=== PATIENT | female | born 1985 | race African-American/Black ===

== ENCOUNTER → 2016-04-23 | Day surgery (SDC) | payer MEDICAID ==
[2016-02-04 09:54] VITALS: BMI 28.8
[~2016-04-23] MED LIST: CEFAZOLIN 1 GM VIAL ONE
[2016-04-23 11:22] VITALS: BP 242/139; PULSE 101
--- NOTE | 2016-04-23 11:32 | PCM.SURGRO ---
Patient presented to same day surgery department with blood pressure of 242/139 and asymptomatic. The patient reports that she has not taken her antihypertensive medications for three to four days. We will cancel surgery, have the patient follow up with her primary care provider and reschedule surgery when blood pressure is well controlled. I have discussed the clinical scenario with Dr. Vicente, anesthesiologist and with the patient. All questions were answered.
== END ==
LOC: SDC 10:56
PROVIDERS: ATTEND Surgery
DX: K40.20 Bilateral inguinal hernia, without obstruction or gangrene, not specified as recurrent (principal); I10 Essential (primary) hypertension; Z53.09 Procedure and treatment not carried out because of other contraindication
CPT/HCPCS: 81025; J0690

== ENCOUNTER → 2016-05-14 | Day surgery (SDC) | payer MEDICAID ==
[2016-02-04 09:54] VITALS: BMI 28.8
[~2016-05-14] MED LIST changes: +BUPIVACAINE 0.25% 30 ML VIAL ONE; +DEXAMETHASONE 4 MG/ML VIAL IV ONE; +FENTANYL 100 MCG/2 ML VIAL IV ONE; +FENTANYL 100 MCG/2 ML VIAL IV PRN; +FENTANYL 100 MCG/2 ML VIAL ONE; +HYDROmorphone 1 MG INJECTION IV PRN; +HYDROmorphone 2 MG/ML VIAL IM ONE; +KETOROLAC TROMETH 30 MG/ML VIAL IM ONE; +LABETALOL 20 MG/4 ML SYRINGE IV PRN; +LIDOCAINE 1% 2 ML (METHYLPARABEN FREE) ONE; +LIDOCAINE 4% 5 ML AMPULE NEB ONE; +MEPERIDINE 25 MG/ML TUBEX IV PRN; +MIDAZOLAM 2 MG/2 ML VIAL IV ONE; +ONDANSETRON HCL 4 MG ODT TAB PO PRN; +ONDANSETRON HCL 4 MG/2 ML VIAL IV ONE; +ONDANSETRON HCL 4 MG/2 ML VIAL IV PRN; +OXYCODONE HCL 5 MG TABLET ONE; +PROMETHAZINE 25 MG/ML VIAL IV PRN; +PROPOFOL 200 MG/20 ML VIAL IV ONE; +hydrALAZINE 20 MG/ML VIAL IV PRN
[2016-05-14] MEDS: CEFAZOLIN 1 GM VIAL ONE ×2 (06:49→07:54)
--- NOTE | 2016-05-14 07:04 | SC.ANESPOS ---
[id number], Hemodynamically Stable, Pain Control Adequate Phase I & II Recovery Complete: Yes Apparent Anesthesia Complication: No : N - Vital Signs Blood Pressure: 165/98 Pulse: 85 Resp Rate: 18 O2 Sat: 100 Temp: 97.4 F
--- NOTE | 2016-05-14 07:06 | HIM.ANES ---
Anesthesia Evaluation & Plan Diagnoses: BI INGUINAL HERNIA, W/O OBST OR GANGRENE, NOT SPCF RECUR (05/14/16) Consented Procedure: BIALTERAL INGUINAL HERNIORRAPHY WITH MESH - Focused Review of Systems Now: No Cardiac History: Yes: Hx Hypertension (H/O HYPERTENSIVE CRISIS.), Hx Heart Murmur (2/6 SYSTOLIC MURMUR), Hx Cardiac Disorders, Hx Congestive Heart Failure (HX CHF-TAKING MEDS/EF 55% now) HEENT: No: Other HEENT Problems Respiratory: Yes: Hx Snoring Gastrointestinal: Yes: Hx Gastrointestinal Disorders No: Hx Gastroesophageal Reflux Disease Neurological/Musculoskeletal: Yes: Hx Neurological Disorders Other Neurological Problems: ALLERGIC RHINNITIS Psychological: Yes Hx Anxiety, Yes Hx Depression, Yes Hx Mental/Emotional Disorders HX Other Psyco/Soc Problems: 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 PATIENT WAS NOT TAKING BP MEDICATION) Surgical History: Yes: Cholecystectomy (03/2015) Other Surgical History: WISDOM TEETH EXTRACTION - Focused Physical Exam NPO since: 05/13/16 2100 Mallampati: Class III Thyromental Distance: Greater than 3 Neck: Full Range of Motion Dental: Normal - no significant findings Cardiovascular/Chest: Normal Respiratory: Lungs clear Any problems with anesthesia, including nausea and vomiting?: No Any relatives with a history of Malignant Hyperthermia?: No Beta Navin given (if appropriate): Yes Does the patient have a history of Motion Sickness-: No Other: Problem List Problem Status Onset Admission for sterilization Acute Chest pain at rest Acute Hypokalemia Acute Incomplete Acute Incomplete with metabolic disorder Acute Malignant hypertension Acute PT/PTT/INR/ Urine Test Neg (NEGATIVE) 05/14/16 06:05 Allergies Allergy/AdvReac Type Severity Reaction Status Date / Time No Known Allergies Allergy Verified 05/14/16 06:24 Home Medications Medication Instructions Recorded Last Taken Type Hydrochlorothiazide 12.5 mg PO DAILY 04/11/16 05/14/16 04:30 History Carvedilol 25 mg PO BID 04/23/16 05/14/16 04:30 History Lisinopril 10 mg PO DAILY 04/23/16 05/14/16 04:30 History Height and Weight Patient's height 5 ft 6 in Patient's weight 198 lb BMI 28.8 Vital Signs Temperature 97.4 F L 05/14/16 07:04 Pulse Rate 85 05/14/16 07:04 Respiratory Rate 18 05/14/16 07:04 Blood Pressure 165/98 05/14/16 07:04 Pulse Oxygen Saturation 100 05/14/16 07:04 - Anesthetic Plan Anesthesia Type: General ASA Class: 3 -: I have examined this patient and reviewed the medical record. The patient has been assessed prior to anesthesia. Risks and benefits of anesthesia and anesthetic technique options have been discussed and all questions answered. The patient accepts the risk and desires me to proceed with the planned anesthetic.
--- NOTE | 2016-05-14 08:46 | HIMOPRPT ---
DATE OF PROCEDURE: 05/14/16 PREOPERATIVE DIAGNOSIS: Bilateral inguinal hernia. POSTOPERATIVE DIAGNOSIS: Bilateral inguinal hernia. PROCEDURE: Bilateral inguinal herniorrhaphy with mesh SURGEON: Pedrito Grover DO. ANESTHESIA: General anesthesia ANESTHESIOLOGIST: Dr. Leland Kendrick DRAINS: None. COMPLICATIONS: None. PATIENT CONDITION: Stable. SPECIMEN: 1. Section of right ilioinguinal nerve 2. Section of left ilioinguinal nerve ESTIMATED BLOOD LOSS: 5 ml INDICATIONS: This is a 31-year-old female with with bilateral inguinal hernias. It was recommended to the patient bilateral inguinal herniorrhaphy with mesh. The risks associated with operation were discussed with the patient in detail to include, but not limited to bleeding, infection, infection of mesh, necessitating removal, injury to intra-abdominal blood vessels, injury to small or large intestine, deep vein thrombosis, resultant pulmonary embolism, perioperative cardiac and respiratory morbidity and mortality, injury to cutaneous nerves involving paresthesia, possibly chronic pain, intracutaneous fistula, and hernia recurrence. All questions were answered. Informed consent was obtained. FINDINGS: The patient had a large indirect right inguinal hernia. No direct component was identified. The patient had a smaller left indirect inguinal hernia. No direct component was identified. Medium BARD Plug was placed on both sides. PROCEDURE IN DETAIL: NICOLAS PURI was taken to the operative suite at [facility] and placed in supine position. General anesthesia was induced. After successful completion of this, [left] inguinal area was clipped free with hair electric clippers. The patient was then sterilely prepped and draped in the usual fashion. All members of surgical team were in agreement of correct patient and correct procedure. Oblique incision was made over the right inguinal canal, carried down to the subcutaneous tissue. The Savage's fascia was incised to the length of skin incision. External oblique fascia was incised to the length of skin incision. Round ligament was circumferentially isolated, dissected from from the indirect hernia. It was doubly clamped and cut. Clamps were replaced with 2-0 silk tie and 0 Vicryl suture ligature. The floor of the canal was explored with findings as described above. The ilioinguinal nerve was identified, crossing the direction of the proposed placement of the mesh. It was doubly clamped, cut, and section was sent for specimen. Clamps were placed with 2-0 silk ties.The proximal end retracted deep to the fascia and musculature and retracted posteriorly and laterally. The hernia was explored with no evidence of incarcerated small or large intestine. The properitoneal adipose tissue was placed back in the preperitoneal space. Medium BARD plug was placed within the indirect hernia opening, sutured in place the shelving portion of the inguinal ligament x1 and sutured in place to the internal oblique fascia x2, these with U sutures and with 2-0 Vicryl suture. The area was irrigated and aspirated dry. Hemostasis was excellent. External oblique fascia was closed with running 3-0 Vicryl suture. The Savage's fascia was closed with plain suture. Skin was closed with 4 -0 Monocryl subcuticular stitch after infiltration of anesthetic. Dermabond was applied Oblique incision was made over the left inguinal canal, carried down to the subcutaneous tissue. Bridging vein was doubly clamped, cut between, and clamps were placed with 2-0 silk ties. The Savage's fascia was incised to the length of skin incision. External oblique fascia was incised to the length of skin incision. Round ligament was circumferentially isolated, dissected from from the indirect hernia. It was doubly clamped and cut. Clamps were replaced with 2 -0 silk tie and 0 Vicryl suture ligature. The floor of the canal was explored with findings as described above. The ilioinguinal nerve was identified, crossing the direction of the proposed placement of the mesh. It was doubly clamped, cut, and section was sent for specimen. Clamps were placed with 2-0 silk ties.The proximal end retracted deep to the fascia and musculature and retracted posteriorly and laterally. The hernia was explored with no evidence of incarcerated small or large intestine. The properitoneal adipose tissue was placed back in the preperitoneal space. Medium BARD plug was placed within the indirect hernia opening, sutured in place the shelving portion of the inguinal ligament x1 and sutured in place to the internal oblique fascia x2, these with U sutures and with 2-0 Vicryl suture. The area was irrigated and aspirated dry. Hemostasis was excellent. External oblique fascia was closed with running 3-0 Vicryl suture. The Savage's fascia was closed with plain suture. Skin was closed with 4 -0 Monocryl subcuticular stitch after infiltration of anesthetic. Dermabond was applied. Sterile occlusive dressing was applied over this. Anesthesia was reversed. The patient was taken to recovery, having tolerated this procedure well.
[2016-05-14 16:44] VITALS: BP 165/98; PULSE 85; TEMP 97.4
== END ==
LOC: SDC 05:52
PROVIDERS: ATTEND Surgery
PROC: 0YUA0JZ Supplement Bilateral Inguinal Region with Synthetic Substitute, Open Approach (ICD-10-PCS; principal; 2016-05-14 07:15)
DX: K40.20 Bilateral inguinal hernia, without obstruction or gangrene, not specified as recurrent (principal); I10 Essential (primary) hypertension; I50.9 Heart failure, unspecified; F41.9 Anxiety disorder, unspecified; F32.9 Major depressive disorder, single episode, unspecified; Z79.899 Other long term (current) drug therapy; Z90.49 Acquired absence of other specified parts of digestive tract
CPT/HCPCS: 49505; 81025; 96372; C1781; J0690; J1100; J1170; J1885; J2001; J2250; J2405; J3010; J3490; S0020